=== PATIENT | male | born 1960 | race Caucasian/White ===

== ENCOUNTER 2019-08-16 18:56 | Emergency (ER) | payer BC ==
[~2019-08-16] VITALS: Ht 193 cm; Wt 113.4 kg
[~2019-08-16 18:56] MED LIST: AZITHROMYCIN250 MG PO; CENTRUM SILVER1 EAC2 PO; IBUPROFEN 800800 M1 PO; KRILL OIL 1,001 EAC1 PO; LEVAQUIN 500 M500 M2 PO; MEN'S ONE DAIL1 EAC1 PO; OMEGA-3 KRILL1 EAC2 PO; XARELTO15 MG PO; ZPAK PO
[2019-08-16 19:40] LABS: ABSOLUTE BASOPHILS 0.1 thou/uL (0.0-0.2); ABSOLUTE EOSINOPHILS 0.2 thou/uL (0.0-0.7); ABSOLUTE MONOCYTES 0.5 thou/uL (0.0-1.2); ABSOLUTE NEUTROPHILS 2.9 thou/uL (1.6-8.1); BASOPHILS 0.9 %; HEMATOCRIT 45.3 % (42.0-52.0); HEMOGLOBIN 16.1 gm/dL (14.0-18.0); LYMPHOCYTES 35.3 %; MCH 32.4 pg (26.0-34.0); MCHC 35.6 g/dL (28.0-37.0); MCV 91.1 fL (80.0-100.0); MPV 7.5 fl. (7.2-11.1); NUCLEATED RBCS 0 /100WBC; PLATELET COUNT* 194 thou/uL (150-400); POLYS 50.8 %; RBC 4.97 mil/uL (4.50-6.00); RDW-CV 13.5 % (10.5-14.5); WBC 5.7 thou/uL (4.0-11.0)
[2019-08-16 19:48] LABS: CALCIUM 9.6 mg/dL (8.5-10.1); CREATININE 1.3 mg/dL (0.6-1.3); POTASSIUM 4.2 mmol/L (3.5-5.1)
[2019-08-16] MEDS ORDERED: PREDNISONE50 MG PO (21:11)
[2019-08-16] MEDS ORDERED: IBUPROFEN 800800 MG PO (21:11)
[2019-08-16 21:33] VITALS: BP 166/89
== END 2019-08-16 21:35 | disposition home or self-care (01) ==
LOC: M.ERS 18:56
PROVIDERS: Personal Emergency Response Attendant
DX: K11.20 Sialoadenitis, unspecified (principal)